=== PATIENT | male | born 1980 | race Caucasian/White ===

== ENCOUNTER 2017-06-17 16:30 | Emergency (ER) | payer SELFPAY ==
--- NOTE | 2017-06-17 17:04 | EDM.PDOC ---
ED HPI GENERAL MEDICAL PROBLEM - General Chief Complaint: General Stated Complaint: PT HURT LT LEG Time Seen by Provider: 06/17/17 16:55 Source of Information: Reports: Patient History Limitations: Reports: No Limitations - History of Present Illness INITIAL COMMENTS - FREE TEXT/NARRATIVE: History of present illness: 37-year-old male comes in complaining of left leg pain in his deep calf. 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 Patient is also a diabetic Review of systems: As per history of present illness and below otherwise all systems reviewed and negative. Past medical history: As per history of present illness and as reviewed below otherwise noncontributory. Surgical history: As per history of present illness and as reviewed below otherwise noncontributory. Social history: No reported history of drug or alcohol abuse. Family history: As per history of present illness and as reviewed below otherwise noncontributory. Physical exam: HEENT: Atraumatic, normocephalic, pupils reactive, negative for conjunctival pallor or scleral icterus, mucous membranes moist, throat clear, neck supple, nontender, trachea midline. Lungs: Clear to auscultation, breath sounds equal bilaterally, chest nontender. Heart: S1S2, regular, negative for clicks, rubs, or JVD. Abdomen: Soft, nondistended, nontender. Negative for masses or hepatosplenomegaly. Negative for costovertebral tenderness. Pelvis: Stable nontender. Genitourinary: Deferred. Rectal: Deferred. Extremities: Left leg swelling and tenderness in the calf . Otherwise neurovascular is unremarkable. Neuro: Awake, alert, oriented. Cranial nerves II through XII unremarkable. Cerebellum unremarkable. Motor and sensory unremarkable throughout. Exam nonfocal. Spoke with Dr. Boss about dosing of Xarelto please see Dr. Deluna's addendum Diagnostics: [Fingerstick at bedside, venous Doppler CBC, CMP, INR] Therapeutics: [Lovenox 100 mg,] Impression: [DVT left leg] Plan: [Lovenox here Rx for 0 to] Definitive disposition and diagnosis as appropriate pending reevaluation and review of above. Treatments DIGITAL COMMENTATOR: Reports: NSAIDS Left Lower Leg Pain Score (Numeric/FACES): 10 - Related Data Allergies Allergy/AdvReac Type Severity Reaction Status Date / Time No Known Allergies Allergy Verified 06/17/17 17:44 Home Meds: Home Meds Rivaroxaban [Xarelto] 15 mg PO BID #42 tablet 06/17/17 [Rx] Rivaroxaban [Xarelto] 20 mg PO DAILY #7 tablet 06/17/17 [Rx] ED ROS GENERAL - Review of Systems Review Of Systems: See Below (See history of present illness) ED EXAM, GENERAL - Physical Exam Exam: See Below (See history of present illness) Course - Vital Signs Last Recorded V/S: Last Vital Signs Temp 36.6 C 06/17/17 16:48 Pulse 98 06/17/17 16:48 Resp 20 06/17/17 16:48 BP 107/71 06/17/17 16:48 Pulse Ox - Orders/Labs/Meds Orders: Active Orders 24 hr Category Date Time Status Venous Doppler Lwr Ext Lt [US] Stat Exams 06/17/17 17:01 Taken Labs: Laboratory Tests 06/17/17 06/17/17 06/17/17 Range/Units 17:01 17:41 17:41 WBC 9.74 (4.0-11.0) K/uL RBC 5.20 (4.50-5.90) M/uL Hgb 15.2 (13.0-17.0) g/dL Hct 42.4 (38.0-50.0) % MCV 81.5 (80.0-98.0) fL MCH 29.2 (27.0-32.0) pg MCHC 35.8 (31.0-37.0) g/dL RDW Std Deviation 40.9 (28.0-62.0) fl RDW Coeff of Elina 14 (11.0-15.0) % Plt Count 171 (150-400) K/uL MPV 12.80 H (7.40-12.00) fL Neut % (Auto) 58.4 (48.0-80.0) % Lymph % (Auto) 27.7 (16.0-40.0) % [place] % (Auto) 9.1 (0.0-15.0) % Eos % (Auto) 4.4 (0.0-7.0) % Baso % (Auto) 0.4 (0.0-1.5) % Neut # (Auto) 5.7 (1.4-5.7) K/uL Lymph # (Auto) 2.7 H (0.6-2.4) K/uL [place] # (Auto) 0.9 H (0.0-0.8) K/uL Eos # (Auto) 0.4 (0.0-0.7) K/uL Baso # (Auto) 0.0 (0.0-0.1) K/uL Nucleated RBC % 0.0 /100WBC Nucleated RBCs # 0 K/uL INR 0.98 (0.86-1.11) Sodium (136-146) mmol/L Potassium (3.5-5.1) mmol/L Chloride (98-110) mmol/L Carbon Dioxide (21-31) mmol/L BUN (6.0-23.0) mg/dL Creatinine (0.6-1.5) mg/dL Est Cr Clr Drug Dosing mL/min Estimated GFR (MDRD) ml/min Glucose (60-110) mg/dL POC Glucose 261 H (60-110) mg/dL Calcium (8.8-10.8) mg/dL Total Bilirubin (0.1-1.5) mg/dL AST (5-40) IU/L ALT (8-54) IU/L Alkaline Phosphatase (40-150) Total Protein (6.0-8.0) g/dL Albumin (3.5-5.0) g/dL Globulin (2.0-3.5) g/dL Albumin/Globulin Ratio (1.3-2.8) 06/17/17 Range/Units 17:41 WBC (4.0-11.0) K/uL RBC (4.50-5.90) M/uL Hgb (13.0-17.0) g/dL Hct (38.0-50.0) % MCV (80.0-98.0) fL MCH (27.0-32.0) pg MCHC (31.0-37.0) g/dL RDW Std Deviation (28.0-62.0) fl RDW Coeff of Elina (11.0-15.0) % Plt Count (150-400) K/uL MPV (7.40-12.00) fL Neut % (Auto) (48.0-80.0) % Lymph % (Auto) (16.0-40.0) % [place] % (Auto) (0.0-15.0) % Eos % (Auto) (0.0-7.0) % Baso % (Auto) (0.0-1.5) % Neut # (Auto) (1.4-5.7) K/uL Lymph # (Auto) (0.6-2.4) K/uL [place] # (Auto) (0.0-0.8) K/uL Eos # (Auto) (0.0-0.7) K/uL Baso # (Auto) (0.0-0.1) K/uL Nucleated RBC % /100WBC Nucleated RBCs # K/uL INR (0.86-1.11) Sodium 137 (136-146) mmol/L Potassium 3.8 (3.5-5.1) mmol/L Chloride 108 (98-110) mmol/L Carbon Dioxide 20 L (21-31) mmol/L BUN 13 (6.0-23.0) mg/dL Creatinine 0.9 (0.6-1.5) mg/dL Est Cr Clr Drug Dosing 99.44 mL/min Estimated GFR (MDRD) > 60.0 ml/min Glucose 305 H (60-110) mg/dL POC Glucose (60-110) mg/dL Calcium 9.0 (8.8-10.8) mg/dL Total Bilirubin 1.0 (0.1-1.5) mg/dL AST 14 (5-40) IU/L ALT 15 (8-54) IU/L Alkaline Phosphatase 104 (40-150) Total Protein 6.7 (6.0-8.0) g/dL Albumin 3.7 (3.5-5.0) g/dL Globulin 3.0 (2.0-3.5) g/dL Albumin/Globulin Ratio 1.2 L (1.3-2.8) Departure - Departure Time of Disposition: 18:38 Disposition: Home, Self-Care 01 Condition: Good Clinical Impression: DVT (deep venous thrombosis) - Discharge Information Referrals: PCP,None [Primary Care Provider] - Forms: ED Department Discharge Additional Instructions: The following information is given to patients seen in the emergency department who are being discharged to home. This information is to outline your options for follow-up care. We provide all patients seen in our emergency department with a follow-up referral. The need for follow-up, as well as the timing and circumstances, are variable depending upon the specifics of your emergency department visit. If you don't have a primary care physician on staff, we will provide you with a referral. We always advise you to contact your personal physician following an emergency department visit to inform them of the circumstance of the visit and for follow-up with them and/or the need for any referrals to a consulting specialist. The emergency department will also refer you to a specialist when appropriate. This referral assures that you have the opportunity for follow-up care with a specialist. All of these measure are taken in an effort to provide you with optimal care, which includes your follow-up. Under all circumstances we always encourage you to contact your private physician who remains a resource for coordinating your care. When calling for follow-up care, please make the office aware that this follow-up is from your recent emergency room visit. If for any reason you are refused follow-up, please contact the [facility] Emergency Department at and asked to speak to the emergency department charge nurse. Please take medication as directed Follow-up with PCP as directed Return to ED as needed as discussed [facility] [address] [place] [id number] - My Orders Last 24 Hours: My Active Orders 06/17/17 17:01 Venous Doppler Lwr Ext Lt [US] Stat - Assessment/Plan Last 24 Hours: My Active Orders 06/17/17 17:01 Venous Doppler Lwr Ext Lt [US] Stat
[2017-06-17 18:08] LABS: CHLORIDE,CL 108 mmol/L (98-110); SODIUM,NA 137 mmol/L (136-146)
--- NOTE | 2017-06-17 18:33 | PCM.SN ---
- Free Text/Narrative Note: This is Dr. Deluna dictating addendum note as a supervising physician on this case. We are tentatively told by the tire service technician that the patient did have a DVT and I discussed this case with our hospitalist Dr. Boss. He recommends starting the patient on Xarelto 15 mg twice a day with food for 21 days and then 20 mg daily with follow-up in one of our clinics. There is protrusion will discuss this care plan with him pending the formal radiology reading.
[2017-06-17] MEDS ORDERED: Enoxaparin 100 MG/1 ML Syringe SUBCUT ONE (19:50)
[2017-06-17 20:20] VITALS: BP 103/71
--- NOTE | 2017-06-20 11:55 | US ---
EXAM DATE: 06/17/17 PATIENT'S AGE: 37 Patient: MARCELLUS CARREON Facility: [place], [place] Site . Site : [id number] Study: US Extremity Left [id number]/[id number] 6:22:57 PM Ordering Physician: Doctor Burrows Final Report: INDICATION: Pain and swelling left calf. TECHNIQUE: Ultrasound venous duplex lower left extremity. Compression venous exam was performed using booth-scale, color Doppler, and spectral Doppler analysis. COMPARISON: None. FINDINGS: Moderate amount of DVT involving the distal left superficial femoral, popliteal , posterior tibial, anterior tibial veins should be considered acute until proven otherwise. Report called to the referring physician at 6:44 p.m. on 06/17. Sonographic imaging demonstrates the left common femoral, deep femoral, mid and proximal superficial and greater saphenous and the contralateral right common femoral veins to be fully compressible with normal color Doppler blood flow. Remainder negative. IMPRESSION: Moderate amount of DVT involving the distal left superficial femoral, popliteal , posterior tibial, anterior tibial veins should be considered acute until proven otherwise. Dictated by Eulalio Miller MD @ Jun 17 2017 6:41PM (Electronic Signature) Report Signed by Proxy. JIM
== END 2017-06-17 20:10 | disposition home or self-care (01) ==
LOC: MW.ED 16:30
DX: I82.4Z2 Acute embolism and thrombosis of unspecified deep veins of left distal lower extremity (principal); Z79.899 Other long term (current) drug therapy
CPT/HCPCS: 36415; 80053; 82962; 85025; 85610; 93971; 96372; 99284; J1650; 99283